=== PATIENT | male | born 1955 | race Caucasian/White ===

== ENCOUNTER → 2024-05-27 | Outpatient (CLI) | payer MEDICARE, SELFPAY ==
--- NOTE | 2024-05-27 13:56 | XR_ITS ---
Examination: Ribs, right, with PA chest, 4 views Technique: Chest PA, RIBS AP, RPO, LPO, 4 views Exam date and time: May 27, 2024 1420 hours INDICATIONS: Patient fell today with injury to the right chest right rib pain Findings: Normal heart size No pneumothorax Moderate osteopenia No acute rib fractures IMPRESSION: No pneumothorax pulmonary contusion or hemothorax No acute right rib fractures
--- NOTE | 2024-05-27 13:56 | XR_ITS ---
Examination: Hand, right 3 views Technique: Hand AP, oblique, lateral 3 views Date and time of exam: May 27, 2024 1420 hours INDICATIONS: Patient fell today with injury to the hand, hand pain FINDINGS: No acute fracture No dislocation No foreign body IMPRESSION: No acute fracture
== END | disposition home or self-care (01) ==
PROVIDERS: PCP Obstetrics & Gynecology; Referring Provider Obstetrics & Gynecology; Visit Provider Obstetrics & Gynecology
DX: S69.91XA Unspecified injury of right wrist, hand and finger(s), initial encounter (principal); S29.9XXA Unspecified injury of thorax, initial encounter; W19.XXXA Unspecified fall, initial encounter
CPT/HCPCS: 71101; 73130

== ENCOUNTER → 2024-10-30 | Outpatient (CLI) | payer MEDICARE, SELFPAY ==
--- NOTE | 2024-10-30 09:15 | XR_ITS ---
Examination: Transrectal prostate sonography TECHNIQUE: Grayscale transrectal sonographic images prostate Exam date and time: October 30, 2024 0939 hours INDICATIONS: Elevated PSA on laboratory examination 2 months ago. FINDINGS: Prostate 4.6 x 3.4 x 4.9 cm volume 40.3 cc No prostate nodules IMPRESSION: Mild to moderate prostatomegaly No prostate nodules
== END | disposition home or self-care (01) ==
PROVIDERS: PCP Physician Assistant; Referring Provider Physician Assistant; Visit Provider Physician Assistant
DX: N40.0 Benign prostatic hyperplasia without lower urinary tract symptoms (principal)
CPT/HCPCS: 76872

== ENCOUNTER → 2025-03-10 | Outpatient (CLI) | payer MEDICARE, SELFPAY ==
--- NOTE | 2025-03-10 10:00 | XR_ITS ---
Examination: Ultrasound soft tissue extremity right foot TECHNIQUE: Grayscale sonographic images soft tissue right foot Date and time: March 10, 2025, 1011 hours INDICATIONS: Palpable lump right posterior foot and neck: Note is beginning one year ago FINDINGS: Small fluid collection at the area concern right posterior foot, 12 x 4 x 10 mm IMPRESSION: 12 x 4 x 10 mm small fluid collection at the area concern posterior right foot, consider MRI ankle without contrast follow-up
== END | disposition home or self-care (01) ==
PROVIDERS: PCP Nurse Practitioner Family; Referring Provider Nurse Practitioner Family; Visit Provider Nurse Practitioner Family
DX: R22.41 Localized swelling, mass and lump, right lower limb (principal)
CPT/HCPCS: 76882

== ENCOUNTER → 2025-04-08 | Outpatient (CLI) | payer MEDICARE, SELFPAY ==
--- NOTE | 2025-04-08 07:30 | XR_ITS ---
Examination: Breast ultrasound, unilateral, right Date and time of exam: April 08, 2025, 0748 hours INDICATIONS: Right breast retroareolar pain beginning 2 months ago, male patient Technique: Real-time clark scale ultrasonographic imaging performed right breast including all 4 quadrants as well as nipple retroareolar and axillary region. Findings: Suspicious for glandular tissue in the retroareolar region right breast at the area of concern, 2.6 x 1.0 x 3.3 cm IMPRESSION: BI-RADS Category 0: Incomplete: Need additional imaging evaluation Recommend comparison left breast sonography follow-up
== END | disposition home or self-care (01) ==
PROVIDERS: PCP Nurse Practitioner Family; Referring Provider Nurse Practitioner Family; Visit Provider Nurse Practitioner Family
DX: R92.8 Other abnormal and inconclusive findings on diagnostic imaging of breast (principal)
CPT/HCPCS: 76641

== ENCOUNTER → 2025-05-23 | Outpatient (CLI) | payer MEDICARE, SELFPAY ==
--- NOTE | 2025-05-23 13:30 | XR_ITS ---
EXAMINATION: Ultrasound soft tissue neck TECHNIQUE: Grayscale sonographic abdomen soft tissue neck Date and time: May 23, 2025, 1333 hours INDICATIONS: Left neck pain 6 months FINDINGS: Lymph nodes in the soft tissue right neck 8 x 6 mm left neck 3 x 3 mm, 5 x 5 mm IMPRESSION: Nonspecific lymphadenopathy, consider 6-month follow-up ultrasound soft tissue neck
== END | disposition home or self-care (01) ==
LOC: CDIM 13:09
PROVIDERS: PCP Nurse Practitioner Family; Referring Provider Nurse Practitioner Family; Visit Provider Nurse Practitioner Family
DX: R59.1 Generalized enlarged lymph nodes (principal)
CPT/HCPCS: 76536

== ENCOUNTER → 2025-06-10 | Outpatient (CLI) | payer MEDICARE, SELFPAY ==
--- NOTE | 2025-06-10 12:30 | XR_ITS ---
Examination: Breast ultrasound, unilateral, left Date and time of exam: June 10, 2025, 1217 hours INDICATIONS: Right breast sonogram April 08, 2025 glandular tissue in the retroareolar region right breast 2.6 x 1.0 x 3.3 cm Technique: Real-time clark scale ultrasonographic imaging performed left breast including all 4 quadrants as well as nipple retroareolar and axillary region. Findings: No cystic or solid mass IMPRESSION: BI-RADS Category 1: Negative study
== END | disposition home or self-care (01) ==
LOC: CDIM 11:57
PROVIDERS: Referring Provider Nurse Practitioner Family; Visit Provider Nurse Practitioner Family
DX: R92.8 Other abnormal and inconclusive findings on diagnostic imaging of breast (principal)
CPT/HCPCS: 76641